=== PATIENT | female | born 1945 | race Caucasian/White ===

== ENCOUNTER → 2017-05-06 | Outpatient (CLI) | payer OTHER | LOC: FIMAGING 09:02 | PROVIDERS: ATTEND Surgery | DX: Z12.31 Encounter for screening mammogram for malignant neoplasm of breast (principal); Z80.3 Family history of malignant neoplasm of breast | CPT/HCPCS: G0202 ==

== ENCOUNTER → 2018-05-12 | Outpatient (CLI) | payer OTHER | LOC: FIMAGING 11:48 | PROVIDERS: ATTEND Surgery | DX: Z12.31 Encounter for screening mammogram for malignant neoplasm of breast (principal); Z80.3 Family history of malignant neoplasm of breast ==